=== PATIENT | male | born 1980 | race Two or more races ===

== ENCOUNTER 2017-11-13 18:25 | Inpatient (IN) | payer MEDICAID ==
[~2017-11-13] VITALS: Ht 170.2 cm; Wt 114.1 kg
--- NOTE | 2017-11-13 18:29 | NUR ---
AAOX3, BIBRA FROM HOME C/O EPIGASTRIC PAIN SINCE LAST NIGHT. PATIENT WAS SEEN AT [facility] THIS AM FOR SAME REASON, STATES THAT HIS LIPASE WAS HIGH. TOOK PRESCRIBED MEDICATION NORCO AND ZOFRAN X 1 HR AGO. PATIENT HAS HX OF PANCREATITIS. JACIEL CERTIFIED MARINE MECHANIC AT FOR EVAL. PLACED ON THE MONITOR. WILL CONTINUOUSLY MONITOR THE PATIENT.
[2017-11-13] MEDS ORDERED: ONDANSETRON HCL/PF 4 MG/2 ML VIAL ONE ×2 (18:34→20:50)
[2017-11-13] MEDS ORDERED: HYDROMORPHONE INJ 2 MG/ML DISP.SYRIN ONE ×3 (18:35→20:56)
--- NOTE | 2017-11-13 18:57 | NUR ---
REPORT GIVEN TO BLANCA AYALA FOR JEAN CLAUDE.
[2017-11-13] MEDS ORDERED: HYDROMORPHONE INJ 2 MG/ML DISP.SYRIN IV ONE (19:00)
[2017-11-13] MEDS ORDERED: IV NS 0.9% 1,000 ML BAG IV ONE ×2 (19:00→20:00)
[2017-11-13] MEDS ORDERED: ONDANSETRON HCL/PF 4 MG/2 ML VIAL IVP ONE (19:00)
[2017-11-13 19:26] LABS: BASOPHILS % (AUTO) 0.1 % (0.0-2.0); EOSINOPHILS % (AUTO) 2.1 % (0.0-6.0); HEMATOCRIT 38 % (39-51); HEMOGLOBIN 13.7 g/dL (13.5-17.5); LYMPHOCYTES # (AUTO) 2.2 /CMM (0.8-4.8); LYMPHOCYTES % (AUTO) 17.8 % (20.0-44.0); MEAN CORPUSCULAR HGB CONC 36 g/dl (31.0-36.0); MEAN CORPUSCULAR VOLUME 84 fL (80-96); MONOCYTES # (AUTO) 0.5 /CMM (0.1-1.30); MONOCYTES % (AUTO) 3.7 % (2.0-12.0); NEUTROPHILS # (AUTO) 9.5 /CMM (1.8-8.9); NEUTROPHILS % (AUTO) 76.3 % (43.0-81.0); PLATELET COUNT (AUTO) 413 /CMM (150-450); RDW COEFFICIENT OF VARIATION 13.8 (11.5-15.0); RED BLOOD CELL COUNT(AUTO) 4.58 MIL/uL (4.5-6.0); WHITE BLOOD COUNT (AUTO) 12.4 K/uL (4.3-11.0)
--- NOTE | 2017-11-13 19:54 | NUR ---
medicated pt as ordered
[2017-11-13] MEDS ORDERED: HYDROMORPHONE 1 MG/1 ML DISP.SYRIN IV ONE ×2 (20:00→21:00)
[2017-11-13 20:02] LABS: ALBUMIN 3.7 g/dL (3.4-5.0); BILIRUBIN,DIRECT 0.1 mg/dL (0.0-0.2); BILIRUBIN,TOTAL 0.7 mg/dL (0.2-1.0); CREATININE 0.9 mg/dL (0.6-1.3); POTASSIUM 3.8 mmol/L (3.5-5.1); TOTAL PROTEIN, SERUM 7.9 g/dL (6.4-8.2)
[2017-11-13 20:32] LABS: INR 0.9 (0.87-1.13)
[2017-11-13] MEDS ORDERED: MAG HYDROX/AL HYDROX/SIMETH 30 ML UDC ONE (20:46)
[2017-11-13] MEDS ORDERED: LIDOCAINE VISCOUS 2% UD 15 ML UDC ONE (20:46)
--- NOTE | 2017-11-13 20:51 | NUR ---
PT STATES HE IS FEELING NAUSEATED. PROCESS SPECIALIST NEGRASSE MADE AWARE. ZOFRAN 4MG IV ORDERED FOR NAUSEA.
--- NOTE | 2017-11-13 20:55 | NUR ---
CALLED , TRANSFERRED CALL TO NP. JACIEL
[2017-11-13] MEDS ORDERED: ONDANSETRON HCL/PF 4 MG/2 ML VIAL IV ONE (21:00)
[2017-11-13] MEDS ORDERED: LIDOCAINE VISCOUS 2% UD 15 ML UDC MM ONE (21:00)
[2017-11-13] MEDS ORDERED: MAG HYDROX/AL HYDROX/SIMETH 30 ML UDC PO ONE (21:00)
--- NOTE | 2017-11-13 21:00 | NUR ---
REPORT GIVEN TO CHRISTINA STEPHENS FOR JEAN CLAUDE.
[2017-11-13] MEDS ORDERED: GLIM4TAB2 PO (21:06)
[2017-11-13] MEDS ORDERED: LOSA50TA21 PO (21:06)
[2017-11-13] MEDS ORDERED: EZET10TA27 PO (21:06)
[2017-11-13] MEDS ORDERED: INSU100C10 SQ (21:06)
[2017-11-13] MEDS ORDERED: PIOG15TA8 PO (21:06)
[2017-11-13] MEDS ORDERED: INSU100I26 SQ (21:06)
[2017-11-13] MEDS ORDERED: METO-358 PO (21:06)
[2017-11-13] MEDS ORDERED: ASPI-605 PO (21:06)
[2017-11-13] MEDS ORDERED: PANT20TA2 PO (21:06)
--- NOTE | 2017-11-13 21:10 | NUR ---
PT TRANSPORTED BY ACLS PROTOCOL BY BLANCA SILVA AND EMT JEISON TO TELEMETRY UNIT.
--- NOTE | 2017-11-13 21:10 | NUR ---
PREMIUM CARD CANCELLATION CLERK NOTES PT ARRIVED ON TO THE UNIT AT 2109 VIA GURNEY ACCOMPANIED BY . PT COMPLAINS OF UNRELIEVED ABDOMINAL/EPIGASTRIC PAIN. PT STATES THAT HE HAS A HX OF PANCREATITIS. NO COMPLAINTS OF SOB AT THIS TIME. PT IS TELE MONITORED AT SINUS TACHYCARDIA. ALL PT BELONGINGS ACCOUNTED FOR AND DOCUMENTED. PT HAS A RIGHT HAND IV #20 INTACT AND PATENT. ORIENTED PT TO THE USE OF THE CALL LIGHT. SAFETY PRECAUTIONS IN PLACE. BED IN LOW LOCKED POSITION, X2 SIDE RAILS UP, CALL LIGHT WITHIN REACH. AWAITING ADMISSION ORDERS FROM DR VÁZQUEZ. WILL CONTINUE TO MONITOR.
--- NOTE | 2017-11-13 21:50 | NUR ---
RN NOTES PAGED DR VÁZQUEZ AT [phone]. DR VÁZQUEZ RETURNED CALL AT [phone]. WILL CARRY OUT ALL ORDERS PER MD REQUEST.
[2017-11-13 22:00] VITALS: BP 149/92
[2017-11-13] MEDS ORDERED: DEXTROSE 50%-WATER 50 ML DISP.SYRIN IV PRN (22:00)
[2017-11-13] MEDS ORDERED: *INSULIN REGULAR(HUMULIN R)HUM 100 UNIT/ML VIAL SQ PRN (22:00)
[2017-11-13] MEDS ORDERED: HYDROCODONE/APAP 5/325MG 1 EACH TABLET PO PRN (22:00)
[2017-11-13] MEDS ORDERED: HYDROMORPHONE 1 MG/1 ML DISP.SYRIN IV PRN (22:00)
[2017-11-13] MEDS: HYDROMORPHONE INJ 2 MG/ML DISP.SYRIN IV PRN (22:47)
--- NOTE | 2017-11-13 22:47 | NUR ---
RN NOTES PT REQUESTED PRN DILAUDID 1MG FOR PAIN. WILL ADMINISTER AND CONTINUE TO MONITOR.
[2017-11-13] MEDS: IV 1/2NS 1000 ML 1,000 ML IV PRN (22:51)
[2017-11-13] MEDS: BLOOD SUGAR DIAGNOSTIC 1 EACH STRIP VI SCH (22:56)
--- NOTE | 2017-11-13 22:58 | NUR ---
RN NOTES BLOOD SUGAR 271. HELD INSULIN, PT NPO EXCEPT FOR MEDS.
[2017-11-14] VITALS: BP 128/76
[2017-11-14] MEDS: ONDANSETRON HCL/PF 4 MG/2 ML VIAL IV PRN ×5 (02:27→21:31)
[2017-11-14] MEDS: HYDROMORPHONE INJ 2 MG/ML DISP.SYRIN IV PRN ×6 (02:29→21:35)
--- NOTE | 2017-11-14 02:30 | NUR ---
RN NOTES PT REQUESTED PRN DILAUDID 1MG AND ZOFRAN FOR ABDOMINAL PAIN AND NAUSEA. WILL CONTINUE TO MONITOR.
[2017-11-14 04:28] VITALS: BP 119/72
[2017-11-14 06:32] LABS: MEAN CORPUSCULAR VOLUME 83 fL (80-96); PLATELET COUNT (AUTO) 427 /CMM (150-450); RDW COEFFICIENT OF VARIATION 13.7 (11.5-15.0); WHITE BLOOD COUNT (AUTO) 10.2 K/uL (4.3-11.0)
--- NOTE | 2017-11-14 06:48 | NUR ---
RN CLOSING NOTES AWAKE AND RESTING IN BED. NO COMPLAINTS OF PAIN, SOB OR DISTRESS AT THIS TIME. PT IS TELE MONITORED AT SINUS TACHYCARDIA. PT HAS A RIGHT HAND IV #20 INTACT AND RUNNING 1/2NS @100ML/HR. SAFETY PRECAUTIONS IN PLACE. BED IN LOW LOCKED POSITION, X2 SIDE RAILS UP, CALL LIGHT WITHIN REACH. WILL ENDORSE TO DAY SHIFT NURSE FOR CONTINUITY OF CARE.
[2017-11-14 07:02] VITALS: BP 118/72
--- NOTE | 2017-11-14 07:07 | NUR ---
RN NOTES CALLED DR VÁZQUEZ TO CLARIFY ORDERS. PER DR VÁZQUEZ GIVE LANTUS THIS MORNING FOR BLOOD SUGAR 324. PT CONTINUES TO BE NPO.
[2017-11-14 07:12] LABS: POTASSIUM 3.7 mmol/L (3.5-5.1)
[2017-11-14 07:19] LABS: HDL CHOLESTEROL 20 mg/dL (40-60); LDL 68 mg/dL (0-99)
[2017-11-14 07:41] LABS: LIPASE 2009 U/L (73-393)
[2017-11-14 08:00] VITALS: BP 118/72
--- NOTE | 2017-11-14 08:00 | NUR ---
RN NOTES RECEIVED PATIENT IN THE ROOM A/O X4. PATIENT ON TELE MONITOR ST-120, V/S TAKEN STABLE, SCHEDULED MEDICATION ADMINISTERED. PATIENT C/O MEDIAL CHEST CHRONIC PAIN 11/09, WHEN MOVING IN THE BED. ENCOURAGED TO EXPRESS FEELINGS AND CONCERNS. PATIENT USING URINAL, PATIENT BED REST, NPO, BS -295 MG/DL COVERAGE GIVE. IV ON RIGHT HAND 0.45 NS AT 100 ML/HR. CALL LIGHT WITHIN TO REACH CONTINUED MONITORING.
[2017-11-14] MEDS: METOPROLOL SUCCINATE 50 MG TAB.SR.24H PO SCH (08:57)
[2017-11-14] MEDS: ASPIRIN EC 81 MG TABLET.DR PO SCH (08:57)
[2017-11-14] MEDS: PIOGLITAZONE HCL 15 MG TABLET PO SCH (08:58)
[2017-11-14] MEDS: GLIMEPIRIDE 4 MG TABLET PO SCH ×2 (08:58→16:47)
[2017-11-14] MEDS ORDERED: GLIMEPIRIDE 4 MG TABLET PO SCH (09:00)
[2017-11-14] MEDS ORDERED: ASPIRIN 81 MG TAB.CHEW PO SCH (09:00)
[2017-11-14] MEDS ORDERED: PANTOPRAZOLE 40 MG TABLET.DR PO SCH (09:00)
[2017-11-14] MEDS ORDERED: LOSARTAN POTASSIUM 50 MG TABLET PO SCH ×2 (09:00)
[2017-11-14] MEDS ORDERED: PIOGLITAZONE HCL 15 MG TABLET PO SCH (09:00)
--- NOTE | 2017-11-14 09:00 | NUR ---
RN NOTES ADMINISTERED DILAUDID 1 MG/ML IV PUSH FOR PAIN 02/08 , AND ZOFRAN 4 MG/ML FOR NAUSEA PER PATIENT REQUEST, BP-118/72, P-125. CONTINUED MONITORING.
[2017-11-14] MEDS: PANTOPRAZOLE 40 MG TABLET.DR PO SCH (09:04)
[2017-11-14] MEDS: BLOOD SUGAR DIAGNOSTIC 1 EACH STRIP VI SCH ×4 (09:04→21:36)
[2017-11-14 09:08] LABS: CREATININE 0.9 mg/dL (0.6-1.3); RED BLOOD CELL COUNT(AUTO) 4.42 MIL/uL (4.5-6.0)
[2017-11-14 09:09] LABS: HEMATOCRIT 37 % (39-51); HEMOGLOBIN 12.4 g/dL (13.5-17.5)
[2017-11-14 09:10] LABS: MEAN CORPUSCULAR HGB CONC 34 g/dl (31.0-36.0)
[2017-11-14 09:13] LABS: CALCIUM, SERUM 8.2 mg/dL (8.5-10.1)
[2017-11-14] MEDS: IV 1/2NS 1000 ML 1,000 ML IV PRN (09:15)
[2017-11-14 09:21] LABS: BASOPHILS % (AUTO) 0.4 % (0.0-2.0); EOSINOPHILS % (AUTO) 2.3 % (0.0-6.0); MONOCYTES % (AUTO) 4.7 % (2.0-12.0)
[2017-11-14] MEDS: INSULIN REGULAR, HUMAN 100 UNIT/ML 3 ML VIAL SQ PRN ×2 (09:23→18:08)
[2017-11-14] MEDS: METFORMIN 500 MG TABLET PO SCH ×2 (10:10→16:47)
[2017-11-14] MEDS: GEMFIBROZIL 600 MG TABLET PO SCH ×2 (10:12→21:30)
[2017-11-14] MEDS: INSULIN GLARGINE, 100 UNIT/ML CARTRIDGE SQ SCH ×2 (10:14→21:36)
[2017-11-14 11:28] LABS: TRIGLYCERIDES 5627 mg/dL (30-150)
[2017-11-14 12:53] LABS: LDL 71 mg/dL (0-99)
[2017-11-14 13:17] LABS: TRIGLYCERIDES 4957 mg/dL (30-150)
[2017-11-14 13:18] LABS: HDL CHOLESTEROL 26 mg/dL (40-60)
--- NOTE | 2017-11-14 14:28 | NUR ---
rn notes ADMINISTERED DILAUDID 1 MG/ML IV PUSH FOR UPPER CHEST PAIN 03/11, AND ALSO ADMINISTERED ZOFRAN 4 MG/ML IV PUSH FOR NAUSEA, PER PATIENT REQUEST, V/S TAKEN BP-131/89, P-109, CONTINUED MONITORING.
[2017-11-14 16:00] VITALS: BP 126/85
[2017-11-14] MEDS: IV NS 0.9% 1,000 ML IV PRN (17:54)
[2017-11-14] MEDS ORDERED: IV NS 0.9% 1,000 ML BAG IV SCH (18:00)
--- NOTE | 2017-11-14 18:13 | NUR ---
RN NOTES ADMINISTERED DILAUDID 1 MG/ML IV PUSH PER PATIENT REQUEST FOR PAIN 03/11, V/S TAKEN BP-126/85, P-105, BS-270 MG/DL COVERAGE GIVEN. CALL LIGHT WITHIN TO REACH. CONTINUED MONITORING.
--- NOTE | 2017-11-14 18:43 | NUR ---
RN NOTES PATIENT IN THE BED RESTING, MEDICATION WERE ADMINISTERED FOR PAIN EFFECTIN, BS-270 MG/DL COVERAGE GIVE, ALSO ADMINISTERED SCHEDULED MEDICATION. STARTED NS AT 100 ML/HR RIGHT HAND INTACT. CALL LIGHT WITHIN TO REACH. CONTINUED MONITORING. ENDORSED ONCOMING NURSE FOR JEAN CLAUDE.
--- NOTE | 2017-11-14 19:35 | NUR ---
RN OPENING NOTES RECEIVED REPORT FROM DAYSHIFT RN WES. FOUND Pt AWAKE, RESTING IN BED. NO S/S OF ACUTE DISTRESS OR SOB NOTED. Pt IS A/OX4, VERBAL, ABLE TO MAKE NEEDS KNOWN. NO C/O SEVERE PAIN AT THIS TIME. WILL CONTINUE TO MONITOR PAIN THROUGHOUT THE NIGHT AND WLL ADMINISTER PAIN MEDS WHEN DUE. IV ACCESS ON ON RHAND #20G, IVF NS @100ML/HR. SAFETY MEASURES IN PLACE. BED LOW, LOCKED, HOB ELEVATED, SIDE RAILS UP, CALL LIGHT AND BEDSIDE TABLE WITHIN REACH. WILL CONTINUE TO MONITOR Pt THROUGHOUT THE NIGHT FOR SAFETY.
[2017-11-14 20:00] VITALS: BP 111/68
[2017-11-14] MEDS ORDERED: INSULIN GLARGINE, 100 UNIT/ML CARTRIDGE SQ SCH ×2 (22:00)
[2017-11-14] MEDS ORDERED: METOPROLOL SUCCINATE 50 MG TAB.SR.24H PO SCH (22:00)
[2017-11-14] MEDS ORDERED: EZETIMIBE 10 MG TABLET PO SCH ×2 (22:00)
--- NOTE | 2017-11-14 22:00 | NUR ---
RN NOTES HS ACCUCHECK BG 257. ADMINISTERED LANTUS 20UN. FORGOT TO COMMENT ON THE ACCUCHECK MACHINE.
[2017-11-15] MEDS: ONDANSETRON HCL/PF 4 MG/2 ML VIAL IV PRN ×2 (02:29→06:27)
[2017-11-15] MEDS: HYDROMORPHONE INJ 2 MG/ML DISP.SYRIN IV PRN ×5 (02:33→22:33)
[2017-11-15] MEDS: IV NS 0.9% 1,000 ML IV PRN ×2 (04:30→15:33)
--- NOTE | 2017-11-15 06:30 | NUR ---
RN NOTES AC ACCUCHECK BG 254. ADMINISTERED 9UN OF INSULIN PER SLIDING SCALE.
[2017-11-15] MEDS: INSULIN REGULAR, HUMAN 100 UNIT/ML 3 ML VIAL SQ PRN ×2 (06:36→08:11)
--- NOTE | 2017-11-15 06:45 | NUR ---
RN CLOSING NOTES NO SIGNIFICANT CHANGES IN Pt's CONDITION DURING SHIFT. Pt REMAINS IN STABLE CONDITION AT THIS TIME. NO S/S OF ACUTE DISTRESS OR SOB NOTED DURING THE NIGHT. ALL NEEDS MET AND ATTENDED TO. SAFETY MEASURES IN PLACE. WILL ENDORSE TO DAYSHIFT RN FOR Pt's JEAN CLAUDE.
[2017-11-15 07:17] LABS: CALCIUM, SERUM 7.4 mg/dL (8.5-10.1); CREATININE 0.9 mg/dL (0.6-1.3); POTASSIUM 3.6 mmol/L (3.5-5.1)
[2017-11-15] MEDS: BLOOD SUGAR DIAGNOSTIC 1 EACH STRIP VI SCH ×4 (07:58→22:25)
[2017-11-15 08:00] VITALS: BP 110/66
--- NOTE | 2017-11-15 08:00 | NUR ---
RN NOTES RECEIVED PATIENT IN THE BED ON O2-2L NC. PATIENT HAS NO RESPIRATORY DISTRESS. ENCOURAGED TO EXPRESS FEELINGS AND CONCERNS. V/S STABLE, MEDICATION WERE ADMINISTERED FOR PAIN EFFECTIVE. SCHEDULED MEDICATION ADMINISTERED. ,BS-250MG/DL COVERAGE GIVEN. IN ON RIGHT HAND NS AT 100 ML/HR. PATIENT USING URINAL. CALL LIGHT WITHIN TO REACH, CONTINUED MONITORING.
[2017-11-15] MEDS: PANTOPRAZOLE 40 MG TABLET.DR PO SCH (08:02)
[2017-11-15] MEDS: ASPIRIN EC 81 MG TABLET.DR PO SCH (08:02)
[2017-11-15] MEDS: METFORMIN 500 MG TABLET PO SCH ×2 (08:04→17:50)
[2017-11-15] MEDS: GEMFIBROZIL 600 MG TABLET PO SCH ×2 (08:04→22:33)
[2017-11-15] MEDS: GLIMEPIRIDE 4 MG TABLET PO SCH (08:04)
[2017-11-15] MEDS: PIOGLITAZONE HCL 15 MG TABLET PO SCH (08:04)
[2017-11-15] MEDS: METOPROLOL SUCCINATE 50 MG TAB.SR.24H PO SCH (08:04)
[2017-11-15] MEDS: INSULIN GLARGINE, 100 UNIT/ML CARTRIDGE SQ SCH (08:10)
[2017-11-15] MEDS ORDERED: INSULIN GLARGINE, 100 UNIT/ML CARTRIDGE SQ ONE (08:30)
[2017-11-15] MEDS ORDERED: SITAGLIPTIN PHOSPHATE 50 MG TABLET PO SCH (09:00)
[2017-11-15] MEDS ORDERED: LINAGLIPTIN 5 MG TABLET PO SCH (09:00)
--- NOTE | 2017-11-15 10:27 | NUR ---
rn notes administered Dilaudid 1 mg/ml iv push per patient request for medial chest pain 01/09. v/s taken bp-115/66, p-95, call light within to reach, continued monitoring.
[2017-11-15] MEDS: INSULIN REGULAR, HUMAN 100 UNIT/ML 10 ML VIAL SQ SCH ×2 (12:04→17:46)
[2017-11-15 16:00] VITALS: BP 101/64
--- NOTE | 2017-11-15 17:51 | NUR ---
RN NOTES ADMINISTERED DILAUDID 1 MG/ML IV PUSH PER PATIENT REQUEST FOR MEDIAL CHEST PAIN 01/09, V/S TAKEN BP-101/64, P-94. BS-161 MG/DL, COVERAGE GIVEN, ADMINISTERED SCHEDULED MEDICATION. PATIENT EATING DINNER. CALL LIGHT WITHIN TO REACH. CONTINUED MONITORING.
[2017-11-15 17:53] LABS: CHOLESTEROL 368 mg/dL (<200)
--- NOTE | 2017-11-15 18:31 | NUR ---
RN NOTES PATIENT STABLE AT THIS TIME, MEDICATION WERE ADMINISTERED FOR PAIN EFFECTIVE, NO ACUTE RESPIRATORY DISTRESS. NEEDS ATTENDED AN ANTICIPATED. CALL LIGHT WITHIN TO REACH. ENDORSED ONCOMING NURSE FOR JEAN CLAUDE.
--- NOTE | 2017-11-15 19:35 | NUR ---
RN OPENING NOTES RECEIVED REPORT FROM [facility] BLANCA INIGUEZ. FOUND Pt AWAKE, RESTING IN BED. NO S/S OF ACUTE DISTRESS OR SOB NOTED. Pt IS A/OX4, VERBAL, ABLE TO MAKE NEEDS KNOWN. NO C/O SEVERE PAIN AT THIS TIME. WILL CONTINUE TO MONITOR PAIN THROUGHOUT THE NIGHT AND WILL ADMINISTER PAIN MEDS WHEN DUE. IV ACCESS ON ON RHAND #20G, IVF NS @100ML/HR. SAFETY MEASURES IN PLACE. BED LOW, LOCKED, HOB ELEVATED, SIDE RAILS UP, CALL LIGHT AND BEDSIDE TABLE WITHIN REACH. WILL CONTINUE TO MONITOR Pt THROUGHOUT THE NIGHT FOR SAFETY.
[2017-11-15 20:00] VITALS: BP_SYST 103; BP_SYST 118; BP_DIAS 61; BP_DIAS 66
--- NOTE | 2017-11-15 22:45 | NUR ---
RN NOTES HS ACCUCHECK 107. NO INSULIN COVERAGE NEEDED AT THIS TIME. WILL CONTINUE TO MONITOR BG.
[2017-11-16] MEDS: HYDROMORPHONE INJ 2 MG/ML DISP.SYRIN IV PRN ×3 (06:02→13:19)
[2017-11-16] MEDS: IV NS 0.9% 1,000 ML IV PRN (06:19)
[2017-11-16] MEDS: BLOOD SUGAR DIAGNOSTIC 1 EACH STRIP VI SCH ×2 (06:25→13:19)
--- NOTE | 2017-11-16 06:30 | NUR ---
RN NOTES AC ACCUCHECK BG 137. ADMINISTERED 2UN OF INSULIN PER SLIDING SCALE. HELD 0730 SCHEDULED INSULIN OF 12UN. ANOTHER SCHEDULED INSULIN AT 1200.
[2017-11-16] MEDS: INSULIN REGULAR, HUMAN 100 UNIT/ML 3 ML VIAL SQ PRN ×2 (06:33→13:25)
[2017-11-16] MEDS: INSULIN REGULAR, HUMAN 100 UNIT/ML 10 ML VIAL SQ SCH ×2 (06:43→12:00)
[2017-11-16 07:57] VITALS: BP 132/75
--- NOTE | 2017-11-16 08:00 | NUR ---
MS RN RECEIVED ON BED, AWAKE,ALERT,ORIENTED X4, NOT IN ANY FORM OF DISTRESS, RESPIRATIONS EVEN AND UNLABORED,NO SOB NOTED, LUNGS ARE CLEAR,ABDOMEN SOFT,POSITIVE BOWEL SOUNDS, DENIES PAIN AT THIS TIME, WILL MONITOR PATIENT.
[2017-11-16] MEDS ORDERED: FENO145T35 PO (08:27)
[2017-11-16] MEDS ORDERED: METF-440 PO (08:27)
[2017-11-16] MEDS ORDERED: HYDR-552 PO (08:28)
--- NOTE | 2017-11-16 09:00 | NUR ---
MS RIOS BREAKFAST SERVED,DUE MEDS GIVEN,TOLERATED WELL.
--- NOTE | 2017-11-16 09:30 | NUR ---
MS RN WAS SEEN BY DR. MARY Newby/ ORDERS MADE AND CARRIED OUT.
[2017-11-16] MEDS: GEMFIBROZIL 600 MG TABLET PO SCH (09:35)
[2017-11-16 09:36] VITALS: BP 132/75
[2017-11-16] MEDS: ASPIRIN EC 81 MG TABLET.DR PO SCH (09:36)
[2017-11-16] MEDS: PANTOPRAZOLE 40 MG TABLET.DR PO SCH (09:36)
[2017-11-16] MEDS: METFORMIN 500 MG TABLET PO SCH (09:36)
[2017-11-16] MEDS: METOPROLOL SUCCINATE 50 MG TAB.SR.24H PO SCH (09:36)
--- NOTE | 2017-11-16 10:00 | NUR ---
ms rn was seen by dr. sandra hughes/ [place] to go home today.
--- NOTE | 2017-11-16 15:20 | NUR ---
ms program director/morning show host instructions given and understood, went home w/ prescription,all needs attended.
[2017-11-16] MEDS ORDERED: INSULIN GLARGINE, 100 UNIT/ML CARTRIDGE SQ SCH (22:00)
== END 2017-11-16 15:15 | disposition home or self-care (01) | DRG 282 ==
LOC: ER 18:31 → TELE 20:55 → MED 11-14 08:22
PROVIDERS: ADMIT Internal Medicine; ATTEND Internal Medicine
DX: K85.90 Acute pancreatitis without necrosis or infection, unspecified (principal); I10 Essential (primary) hypertension; E78.1 Pure hyperglyceridemia; K86.1 Other chronic pancreatitis; E11.9 Type 2 diabetes mellitus without complications; E78.5 Hyperlipidemia, unspecified; Z83.3 Family history of diabetes mellitus; Z82.49 Family history of ischemic heart disease and other diseases of the circulatory system; Z79.82 Long term (current) use of aspirin; Z79.84 Long term (current) use of oral hypoglycemic drugs; Z79.899 Other long term (current) drug therapy
CPT/HCPCS: 36415; 71045-TC; 80048-TC; 80061-TC; 80076-TC; 82962-TC; 83690-TC; 84478-TC; 84484-TC; 85025-TC; 85730-TC; 87081-TC; A4606; J1170; J1815; J2405; J3490; J7030; Z7610

== ENCOUNTER 2017-12-26 13:17 | Inpatient (IN) | payer MEDICAID ==
[~2017-12-26] VITALS: Ht 165.1 cm; Wt 117.9 kg
[2017-12-26] VITALS (7 sets, daily range): BP systolic 134–153; BP diastolic 87–103
[~2017-12-26 13:17] MED LIST: ASPI-605 PO; FENO145T35 PO; HYDR-552 PO; INSU100I26 SQ; METF-440 PO; METO-358 PO; PANT20TA2 PO; PIOG15TA8 PO
--- NOTE | 2017-12-26 13:30 | NUR ---
PT CAME IN WITH C/O CHEST AND EPIGASTRIC PAIN STARTED 2 HRS AGO. SEEN BY MD FOR EVAL. NOTED DIAPHORETIC. TACHY. SAFETY AND COMFORT MEASURES PROVIDED. WILL MONITOR.
[2017-12-26] MEDS ORDERED: HYDROMORPHONE INJ 0.5 MG/0.5 ML SYRINGE ONE ×6 (13:57→18:15)
[2017-12-26] MEDS ORDERED: ONDANSETRON HCL/PF 4 MG/2 ML VIAL ONE (13:57)
[2017-12-26] MEDS ORDERED: IV NS 0.9% 1,000 ML BAG IV ONE ×3 (14:00→21:30)
[2017-12-26] MEDS ORDERED: ONDANSETRON HCL/PF 4 MG/2 ML VIAL IVP ONE (14:00)
[2017-12-26] MEDS ORDERED: HYDROMORPHONE INJ 2 MG/ML DISP.SYRIN IV ONE (14:00)
--- NOTE | 2017-12-26 14:11 | NUR ---
IV ACCESS STARTED. BLOOD DRAWN FOR LABS. MEDICATED ORDERED.
--- NOTE | 2017-12-26 14:20 | NUR ---
NOTED PT DESATED TO 60%, PLACED ON NON-REBREATHER. SATURATION CAME BACK UP TO 90'S. PLACED ON NC. WILL CLOSELY MONITOR. TRANSFORMER ASSEMBLY SUPERVISOR AWARE.
[2017-12-26] MEDS ORDERED: HYDROMORPHONE 1 MG/1 ML DISP.SYRIN IV ONE ×4 (14:30→19:30)
--- NOTE | 2017-12-26 15:15 | NUR ---
REPatient is resting comfortably in bed with eyes closed. Easily aroused. VSS
[2017-12-26] MEDS ORDERED: FENTANYL PF 100MCG/2ML AMPUL IV ONE (15:30)
[2017-12-26] MEDS ORDERED: FENTANYL PF 100MCG/2ML AMPUL ONE (15:32)
[2017-12-26] MEDS ORDERED: NALOXONE HCL 0.4 MG/ML AMPUL ONE (15:33)
[2017-12-26 15:39] LABS: CALCIUM, SERUM 9.8 mg/dL (8.5-10.1)
[2017-12-26 15:42] LABS: POTASSIUM 3.6 mmol/L (3.5-5.1)
[2017-12-26 15:46] LABS: ALBUMIN 3.9 g/dL (3.4-5.0); BILIRUBIN,TOTAL 0.5 mg/dL (0.2-1.0)
[2017-12-26 15:47] LABS: TOTAL PROTEIN, SERUM 8.1 g/dL (6.4-8.2)
[2017-12-26] MEDS ORDERED: IOHEXOL-300 100 ML VIAL IV ONE (16:00)
[2017-12-26 16:04] LABS: BASOPHILS % (AUTO) 0.5 % (0.0-2.0); EOSINOPHILS % (AUTO) 4.8 % (0.0-6.0); HEMATOCRIT 32 % (39-51); HEMOGLOBIN 11.4 g/dL (13.5-17.5); LYMPHOCYTES # (AUTO) 3.1 /CMM (0.8-4.8); LYMPHOCYTES % (AUTO) 34.8 % (20.0-44.0); MEAN CORPUSCULAR HGB CONC 36 g/dl (31.0-36.0); MEAN CORPUSCULAR VOLUME 83 fL (80-96); MONOCYTES # (AUTO) 0.3 /CMM (0.1-1.30); NEUTROPHILS % (AUTO) 56.9 % (43.0-81.0); PLATELET COUNT (AUTO) 294 /CMM (150-450); RDW COEFFICIENT OF VARIATION 14.3 (11.5-15.0); RED BLOOD CELL COUNT(AUTO) 3.86 MIL/uL (4.5-6.0); WHITE BLOOD COUNT (AUTO) 8.9 K/uL (4.3-11.0)
--- NOTE | 2017-12-26 16:05 | NUR ---
PT TAKEN FOR CT.
[2017-12-26 16:23] LABS: EOSINOPHILS % (MANUAL) 2 % (0-4); LYMPHOCYTES % (MANUAL) 38 % (16-48); MONOCYTES % (MANUAL) 9 % (0-11.0); NEUTROPHILS % (MANUAL) 51 (42-76)
[2017-12-26] MEDS ORDERED: HYDROMORPHONE INJ 0.5 MG/0.5 ML SYRINGE IV ONE (17:00)
--- NOTE | 2017-12-26 17:21 | NUR ---
CALLED NURSE SUP FOR ICU BED
--- NOTE | 2017-12-26 17:21 | NUR ---
PITER BEAVER MEAT LOINER [phone] FAX [phone].
[2017-12-26] MEDS ORDERED: INSU100I14 SQ (17:39)
[2017-12-26] MEDS ORDERED: OMEP20TA5 PO (17:39)
[2017-12-26] MEDS ORDERED: FENO145T35 PO (17:39)
[2017-12-26] MEDS ORDERED: GLIM4TAB2 PO (17:39)
[2017-12-26] MEDS ORDERED: LOSA50TA21 PO (17:39)
[2017-12-26] MEDS ORDERED: METF-442 PO (17:39)
[2017-12-26] MEDS ORDERED: EZET10TA14 PO (17:39)
--- NOTE | 2017-12-26 18:35 | NUR ---
RECEIVED AUTH NUMBER [id number] - PAGED DR. VÁZQUEZ
--- NOTE | 2017-12-26 18:40 | NUR ---
DR VÁZQUEZ CALLED BACK, JACIEL, SOFTWARE CLIENT ARCHITECT IS TALKING WITH HIM ON THE PHONE.
--- NOTE | 2017-12-26 18:44 | NUR ---
CALLED NURSE SUP FOR [facility] BED
--- NOTE | 2017-12-26 19:13 | NUR ---
REPORT GIVEN TO DIANNA RIOS FOR JEAN CLAUDE.
[2017-12-26] MEDS ORDERED: HYDROMORPHONE INJ 2 MG/ML DISP.SYRIN ONE (19:28)
[2017-12-26 19:32] LABS: LDL 94 mg/dL (0-99)
[2017-12-26 20:26] LABS: TRIGLYCERIDES 3247 mg/dL (30-150)
[2017-12-26 20:27] LABS: CHOLESTEROL 295 mg/dL (<200); HDL CHOLESTEROL 118 mg/dL (40-60)
--- NOTE | 2017-12-26 20:48 | NUR ---
REPORT GIVEN TO NITZA SCHUSTER
[2017-12-26] MEDS ORDERED: ZOLPIDEM TARTRATE 5 MG TABLET PO PRN (21:30)
[2017-12-26] MEDS ORDERED: ACETAMINOPHEN 650 MG/20.3 ML UDC NG PRN (21:30)
[2017-12-26] MEDS ORDERED: HYDROCODONE/APAP 5/325MG 1 EACH TABLET PO PRN (21:30)
[2017-12-26] MEDS ORDERED: IV 1/2NS 1000 ML 1,000 ML IV SCH (21:30)
[2017-12-26] MEDS: PANTOPRAZOLE 40 MG VIAL IV SCH (21:42)
[2017-12-26] MEDS ORDERED: INSULIN REGULAR, HUMAN 100 UNIT/ML 3 ML VIAL ONE (21:45)
[2017-12-26] MEDS: HYDROMORPHONE INJ 0.5 MG/0.5 ML SYRINGE IV PRN (22:00)
[2017-12-26] MEDS: ONDANSETRON HCL/PF 4 MG/2 ML VIAL IV PRN (22:02)
[2017-12-26] MEDS: INSULIN REGULAR, HUMAN 100 UNIT in IV NS 0.9% 99 ML IV PRN ×2 (22:15)
[2017-12-26] MEDS: BLOOD SUGAR DIAGNOSTIC 1 EACH STRIP IN SCH ×2 (22:20→22:59)
--- NOTE | 2017-12-26 22:21 | NUR ---
received pt from ER, s/p acute pancreatitis a/o x4, ST, on insulin drip at 4units, on 2 L 02, sat well, lungs clear, no edema, NPO, urinates in urinal, v/s stable, c/o epigastric pain, Dilaudid 1mg ivp given, c/o n/v Zofran 4mg ivp given, at the bedside.
[2017-12-26] MEDS ORDERED: PIPERACILLIN /TAZOBACTAM 2.25 G VIAL IV ONE (23:41)
[2017-12-26] MEDS: PIPERACILLIN /TAZOBACTAM 4.5 G in IV D5W 50 ML IV SCH (23:42)
[2017-12-27] VITALS (45 sets, daily range): BP systolic 71–144; BP diastolic 45–95
[2017-12-27] MEDS: INSULIN REGULAR, HUMAN 100 UNIT in IV NS 0.9% 99 ML IV PRN ×8 (00:03→20:06)
--- NOTE | 2017-12-27 00:36 | NUR ---
pt is resting in the bed, on insulin drip at 8units, Algorithm #2 is used, last BS 337, v/s stable, c/o constant pain, Dilaudid 1mg ivp beeing given q3hrs, good urine output, pt turns and repositions by himself.
[2017-12-27] MEDS: HYDROMORPHONE INJ 0.5 MG/0.5 ML SYRINGE IV PRN ×6 (01:11→21:16)
[2017-12-27] MEDS: BLOOD SUGAR DIAGNOSTIC 1 EACH STRIP IN SCH ×24 (01:11→22:59)
[2017-12-27] MEDS: ONDANSETRON HCL/PF 4 MG/2 ML VIAL IV PRN ×4 (04:12→19:25)
--- NOTE | 2017-12-27 04:27 | NUR ---
pt is resting in the bed, alert, follows commands, ST, on insulin drip at 26units Algorithm#4, last BS 395, good urine output, v/s stable, Dilaudid 1mg ivp given q3hrs.
[2017-12-27] MEDS ORDERED: PIPERACILLIN /TAZOBACTAM 2.25 G VIAL IV ONE ×2 (04:51→04:52)
[2017-12-27 05:10] LABS: BASOPHILS % (AUTO) 0.3 % (0.0-2.0); EOSINOPHILS % (AUTO) 0.5 % (0.0-6.0); HEMATOCRIT 38 % (39-51); HEMOGLOBIN 13.1 g/dL (13.5-17.5); LYMPHOCYTES # (AUTO) 1.3 /CMM (0.8-4.8); LYMPHOCYTES % (AUTO) 23.7 % (20.0-44.0); MEAN CORPUSCULAR HGB CONC 35 g/dl (31.0-36.0); MEAN CORPUSCULAR VOLUME 84 fL (80-96); MONOCYTES # (AUTO) 0.1 /CMM (0.1-1.30); MONOCYTES % (AUTO) 2.3 % (2.0-12.0); NEUTROPHILS % (AUTO) 73.2 % (43.0-81.0); PLATELET COUNT (AUTO) 399 /CMM (150-450); RDW COEFFICIENT OF VARIATION 14.8 (11.5-15.0); RED BLOOD CELL COUNT(AUTO) 4.48 MIL/uL (4.5-6.0); WHITE BLOOD COUNT (AUTO) 5.5 K/uL (4.3-11.0)
[2017-12-27] MEDS: PIPERACILLIN /TAZOBACTAM 4.5 G in IV D5W 50 ML IV SCH (05:10)
[2017-12-27 05:29] LABS: ALBUMIN 2.6 g/dL (3.4-5.0); BILIRUBIN,TOTAL 0.9 mg/dL (0.2-1.0); POTASSIUM 3.8 mmol/L (3.5-5.1); TOTAL PROTEIN, SERUM 6.7 g/dL (6.4-8.2)
--- NOTE | 2017-12-27 05:30 | NUR ---
4 units regular insulin SQ given in addition to insulin drip per protocol. BS 395
[2017-12-27 05:31] LABS: LYMPHOCYTES % (MANUAL) 19 % (16-48); MONOCYTES % (MANUAL) 2 % (0-11.0); NEUTROPHILS % (MANUAL) 79 (42-76)
[2017-12-27 05:58] LABS: CREATININE 0.7 mg/dL (0.6-1.3)
[2017-12-27 06:00] LABS: CALCIUM, SERUM 5.8 mg/dL (8.5-10.1)
[2017-12-27] MEDS ORDERED: INSULIN REGULAR, HUMAN 100 UNIT/ML 10 ML VIAL IV ONE (06:00)
--- NOTE | 2017-12-27 06:10 | NUR ---
Dr Marino called with last BS results, 30 units Lantus SQ order received and carried out.
[2017-12-27] MEDS ORDERED: INSULIN GLARGINE, 100 UNIT/ML CARTRIDGE SQ ONE ×2 (06:30→09:00)
--- NOTE | 2017-12-27 06:30 | NUR ---
Dr Marino notified for Ca 5.8 Order for pharmacy to dose Ca gluconate received.
[2017-12-27] MEDS ORDERED: PIPERACILLIN /TAZOBACTAM 4.5 G in IV NS 0.9% 50 ML IV SCH (08:21)
[2017-12-27] MEDS: ASPIRIN EC 81 MG TABLET.DR PO SCH (08:25)
[2017-12-27] MEDS: EZETIMIBE 10 MG TABLET PO SCH (08:25)
[2017-12-27] MEDS ORDERED: Calcium Gluconate 1GM/10ML 9.3 MEQ in IV NS 0.9% 250 ML IV ONE (08:30)
[2017-12-27] MEDS: Calcium Gluconate 1GM/10ML 9.3 MEQ in IV NS 0.9% 250 ML IV SCH ×2 (08:59→16:21)
[2017-12-27] MEDS: GEMFIBROZIL 600 MG TABLET PO SCH ×2 (08:59→20:59)
[2017-12-27] MEDS ORDERED: NIACIN EXT TAB (500MG) 500 MG TABLET.SA PO ONE (09:00)
[2017-12-27] MEDS ORDERED: FENOFIBRATE NANOCRYS (145 MG) 145 MG TABLET PO SCH (09:00)
[2017-12-27] MEDS ORDERED: Calcium Gluconate 1GM/10ML 9.3 MEQ in IV D5W 250 ML IV SCH (09:00)
[2017-12-27] MEDS ORDERED: LOSARTAN POTASSIUM 50 MG TABLET PO SCH (09:00)
[2017-12-27] MEDS ORDERED: METOPROLOL TARTRATE 50 MG TABLET PO SCH (09:00)
--- NOTE | 2017-12-27 09:53 | NUR ---
RISK SPECIALIST NOTE 0720: Received patient awake, A/Ox3. No respiratory distress noted at this time. With c/o severe pain in abdomen, Dilaudid given as ordered, will continue to monitor. PIVs intact. On insulin drip @ 26u/hr and 1/2 NS @ 100. Remained NPO. Able to use urinals. Noted with clear marci colored urine. 0800: Temp 100.4, Tylenol given as ordered. 0840: S/E by Dr. Marino, with order to get Wood Tank Erector, Nurse sup aware, said none at this time. MD argueta, MD called nephro. Changed Dilaudid to 1mg q2 from q3. Still in insulin drip, BG trending down. Still ST 130's. 1/2NS changed to 150mL/hr from 100mL/hr. Still with severe abdominal pain. 0950: Still with abdominal pain, followed up [facility] Called pharmacy x since 914.
[2017-12-27] MEDS: IV 1/2NS 1000 ML 1,000 ML IV PRN ×2 (10:05→19:37)
[2017-12-27] MEDS: PIPERACILLIN /TAZOBACTAM 4.5 G in IV NS 0.9% 50 ML IV SCH ×3 (12:06→23:19)
[2017-12-27] MEDS: IV NS 0.9% 1,000 ML IV PRN (17:15)
--- NOTE | 2017-12-27 17:40 | NUR ---
RESIDENT CARE MANAGER NOTE SBP 70's, Informed Dr. Marino, with order for NS 1L bolus, and DCd Metoprolol. Followed up with PICC line, CN spoke with nurse sup. Visited by family, wanting to ask for gastric bypass if applicable for the patient, told them I will endorse for nurse tomorrow.
--- NOTE | 2017-12-27 18:53 | NUR ---
PRODUCTION WELDER NOTE Informed Dr. Marino patient still SBP 70's after Bolus NS 1L, with new order of Levophed. Followed up with the pharmacy. Also followed up for PICC line insertion, nurse tj said somebody will come to do it. Will endorse to next shift.
[2017-12-27] MEDS: NOREPINEPHRINE 16 MG in IV D5W 500 ML IV PRN (19:16)
--- NOTE | 2017-12-27 19:30 | NUR ---
ROUTE DELIVERY SUPERVISOR INITIAL NOTES RECEIVED PATIENT AWAKE A/OX4, ABLE TO MAKE NEEDS KNOWN, DROWSY. C/O 03/11 MID CHEST PAIN NON-RADIATING. PERSPIRING. NO RESPIRATORY DISTRESS NOTED ON 2LPMO2 VIA NC. ON TELE MONITOR SR. WITH INSULIN DRIP AT 12UNITS/HR, LEVO, AND IVF. PENDING PICC LINE PLACEMENT. HOB HIGH FOWLERS. SIDE RAILS UP AND LOCKED. BED KEPT AT LOWEST POSITION. CALL LIGHT KEPT WITHIN EASY REACH. WILL CONTINUE TO MONITOR.
[2017-12-27] MEDS: PANTOPRAZOLE 40 MG VIAL IV SCH (20:59)
--- NOTE | 2017-12-27 21:20 | NUR ---
VISITOR SERVICES REPRESENTATIVE NOTE PICC LINE NURSE AT BEDSIDE
--- NOTE | 2017-12-27 22:00 | NUR ---
S/P PICC LINE PLACEMENT. PER PICC LINE NURSE OK TO USE PICC LINE RIGHT AWAY.
[2017-12-28] VITALS (79 sets, daily range): BP systolic 85–138; BP diastolic 23–76
--- NOTE | 2017-12-28 00:42 | NUR ---
IRONING MACHINE OPERATOR NOTE NON-ADMIN PO MEDICATION, PATIENT TO LETHARGIC TO SWALLOW. WILL CONTINUE TO MONITOR. Addendum: 12/28/17 at 0109 by VIGNESH JUNIOR RN DELETE NOTE, WRONG PATIENT
[2017-12-28] MEDS: BLOOD SUGAR DIAGNOSTIC 1 EACH STRIP IN SCH ×24 (00:59→23:05)
[2017-12-28] MEDS: HYDROMORPHONE INJ 0.5 MG/0.5 ML SYRINGE IV PRN ×9 (01:04→21:44)
[2017-12-28] MEDS: ONDANSETRON HCL/PF 4 MG/2 ML VIAL IV PRN ×3 (01:04→19:02)
[2017-12-28] MEDS: IV 1/2NS 1000 ML 1,000 ML IV PRN ×3 (03:05→23:05)
--- NOTE | 2017-12-28 04:30 | NUR ---
LOG MANAGER NOTE BED BATH GIVEN, LINEN CHANGED.
[2017-12-28 04:49] LABS: HEMATOCRIT 37 % (39-51); MEAN CORPUSCULAR HGB CONC 35 g/dl (31.0-36.0); MEAN CORPUSCULAR VOLUME 83 fL (80-96); PLATELET COUNT (AUTO) 407 /CMM (150-450); RDW COEFFICIENT OF VARIATION 15.1 (11.5-15.0); RED BLOOD CELL COUNT(AUTO) 4.45 MIL/uL (4.5-6.0); WHITE BLOOD COUNT (AUTO) 11.2 K/uL (4.3-11.0)
--- NOTE | 2017-12-28 05:00 | NUR ---
ROLL PLUGGER NOTE NOTED PATIENT WITH LOW URINE OUTPUT, PATIENT DENIES BLADDER DISCOMFORT. NO BLADDER DISTENTION NOTED, BLADDER SCAN DONE WITH MINIMAL 60 ML URINE NOTED. PATIENT STATED HE WILL TRY AND PEE AT THIS TIME. WILL CONTINUE TO MONITOR.
[2017-12-28 05:14] LABS: ALBUMIN 2.1 g/dL (3.4-5.0); BILIRUBIN,TOTAL 0.8 mg/dL (0.2-1.0); CALCIUM, SERUM 6.4 mg/dL (8.5-10.1); CREATININE 2.1 mg/dL (0.6-1.3); POTASSIUM 3.7 mmol/L (3.5-5.1); TOTAL PROTEIN, SERUM 6.3 g/dL (6.4-8.2)
[2017-12-28 05:40] LABS: BAND % (MANUAL) 8 % (0.0-5.0); LYMPHOCYTES % (MANUAL) 38 % (16-48); MONOCYTES % (MANUAL) 2 % (0-11.0); NEUTROPHILS % (MANUAL) 49 (42-76)
[2017-12-28 05:41] LABS: EOSINOPHILS % (MANUAL) 3 % (0-4)
[2017-12-28] MEDS: PIPERACILLIN /TAZOBACTAM 4.5 G in IV NS 0.9% 50 ML IV SCH ×4 (05:52→23:05)
[2017-12-28] MEDS: INSULIN REGULAR, HUMAN 100 UNIT in IV NS 0.9% 99 ML IV PRN ×4 (06:22→17:35)
[2017-12-28] MEDS ORDERED: NOREPINEPHRINE 4 MG/4 ML AMPUL IV ONE (06:29)
[2017-12-28] MEDS: NOREPINEPHRINE 16 MG in IV D5W 500 ML IV PRN (06:34)
--- NOTE | 2017-12-28 07:10 | NUR ---
CHRISTMAS TREE FARM WORKER NOTE DILAUDID 0.5MGX2 ACCIDENTALLY THROWN IN THE SHARPS CONTAINER. CHARGE NURSE AND ANOTHER RN VISUALLY SAW MEDICATION IN SHARPS CONTAINER UNUSED. PHARMACY ADEOLA MADE AWARE.
--- NOTE | 2017-12-28 07:30 | NUR ---
FOOD BEVERAGE SUPERVISOR RECEIVED PATIENT ASLEEP ON 2L/C SATURATING 95% ABLE TO WAKE UP EASILY ON INSULIN DRIP AND LEVOPHED , TITRATING ACCORDINGLY MAINTAINED ON NPO ICE CHIPS OFFERED ACCUCHECK TAKEN EVERY HOUR ABLE TO USE HIS URINAL
--- NOTE | 2017-12-28 07:46 | NUR ---
PIPE CONNECTOR CLOSING NOTE NO SIGNIFICANT CHANGES OVERNIGHT. PAIN MONITORED AND MANAGED NEEDED. NO RESPIRATORY DISTRESS NOTED. PER PATIENT HE'S FEELING A LITTLE BETTER TODAY. ALL TITRATABLE MEDICATIONS TITRATED PER PROTOCOL. ALL NEEDS ANTICIPATED AND MET. HOB ELEVATED. SIDE RAILS UP AND LOCKED. BED KEPT AT LOWEST POSITION. CALL LIGHT KEPT WITHIN EASY REACH. CONTINUITY OF CARE ENDORSED TO AM NURSE.
[2017-12-28] MEDS: GEMFIBROZIL 600 MG TABLET PO SCH ×2 (08:05→21:44)
[2017-12-28] MEDS: ASPIRIN EC 81 MG TABLET.DR PO SCH (08:05)
[2017-12-28] MEDS: EZETIMIBE 10 MG TABLET PO SCH (08:11)
[2017-12-28] MEDS ORDERED: INSULIN GLARGINE, 100 UNIT/ML CARTRIDGE SQ ONE (09:30)
[2017-12-28] MEDS ORDERED: METOCLOPRAMIDE HCL 10 MG/2 ML VIAL IV ONE (09:30)
[2017-12-28] MEDS: IV NS 0.9% 1,000 ML IV PRN (09:47)
--- NOTE | 2017-12-28 18:41 | NUR ---
CHLORINATION OPERATOR LANTUS INSULIN GIVEN EARLIER MONITORED SUGAR CLOSELY
[2017-12-28] MEDS: PANTOPRAZOLE 40 MG VIAL IV SCH (21:44)
[2017-12-28] MEDS: NIACIN EXT TAB (500MG) 500 MG TABLET.SA PO SCH (21:44)
--- NOTE | 2017-12-28 21:44 | NUR ---
REVENUE SPECIALIST PT C/O RLQ ABD PAIN 03/11; MEDICATED WITH DILAUDID ORDERED.
--- NOTE | 2017-12-28 22:00 | NUR ---
SURG NURSE BLOOD GLUCOSE 86 INSULIN DRIP TITRATED OFF PER DR VÁZQUEZ BEGIN SLIDING SCALE. PT EDUCATED ON PLAN OF CARE; VERBALIZES UNDERSTANDING. CONTINUE TO MONITOR.
[2017-12-28] MEDS ORDERED: DEXTROSE 50%-WATER 50 ML DISP.SYRIN IV PRN (22:30)
[2017-12-29] VITALS (25 sets, daily range): BP systolic 90–118; BP diastolic 51–78
[2017-12-29] MEDS: HYDROMORPHONE INJ 0.5 MG/0.5 ML SYRINGE IV PRN ×8 (01:12→20:35)
--- NOTE | 2017-12-29 01:12 | NUR ---
YARD SPECIALIST PT C/O RLQ ABD PAIN 03/11; MEDICATED WITH DILAUDID ORDERED.
[2017-12-29 04:34] LABS: ALBUMIN 1.8 g/dL (3.4-5.0); BILIRUBIN,TOTAL 0.9 mg/dL (0.2-1.0); CREATININE 2.5 mg/dL (0.6-1.3); TOTAL PROTEIN, SERUM 5.6 g/dL (6.4-8.2)
[2017-12-29 05:04] LABS: HEMATOCRIT 27 % (39-51); HEMOGLOBIN 9.9 g/dL (13.5-17.5); MEAN CORPUSCULAR HGB CONC 36 g/dl (31.0-36.0); MEAN CORPUSCULAR VOLUME 83 fL (80-96); PLATELET COUNT (AUTO) 293 /CMM (150-450); RDW COEFFICIENT OF VARIATION 14.6 (11.5-15.0); RED BLOOD CELL COUNT(AUTO) 3.31 MIL/uL (4.5-6.0); WHITE BLOOD COUNT (AUTO) 6.4 K/uL (4.3-11.0)
[2017-12-29 05:56] LABS: EOSINOPHILS % (MANUAL) 4 % (0-4); LYMPHOCYTES % (MANUAL) 30 % (16-48); MONOCYTES % (MANUAL) 6 % (0-11.0); NEUTROPHILS % (MANUAL) 60 (42-76)
[2017-12-29] MEDS: PIPERACILLIN /TAZOBACTAM 4.5 G in IV NS 0.9% 50 ML IV SCH ×4 (06:00→23:40)
[2017-12-29] MEDS: BLOOD SUGAR DIAGNOSTIC 1 EACH STRIP IN SCH ×4 (06:00→23:39)
--- NOTE | 2017-12-29 07:05 | NUR ---
SEED PACKER- INITIAL NOTE RECEIVED PT RESTING IN BED. PT A/O X4. ON 2L NC, RESPIRATIONS EVEN AND UNLABORED, NO SOB OR DISTRESS PRESENT. BEDSIDE MONITOR REVEALS SINUS TACHYCARDIA. ANGELY PICC LINE RUNNING 1/2NS @ 100 ML/HR. PT REMAINS NPO EXCEPT MEDS. APPEARS COMFORTABLE AT THIS TIME. WILL CONTINUE TO MONITOR.
[2017-12-29] MEDS: EZETIMIBE 10 MG TABLET PO SCH (08:16)
[2017-12-29] MEDS: ASPIRIN EC 81 MG TABLET.DR PO SCH (08:16)
[2017-12-29] MEDS: GEMFIBROZIL 600 MG TABLET PO SCH ×2 (08:17→20:34)
[2017-12-29] MEDS ORDERED: POTASSIUM CL. PREMIX PERIPHER. 50 ML IV SCH (09:00)
[2017-12-29] MEDS ORDERED: POTASSIUM CHLORIDE 20 MEQ TAB.PRT.SR PO ONE (09:30)
[2017-12-29] MEDS: IV NS 0.9% 1,000 ML IV PRN (09:42)
[2017-12-29] MEDS ORDERED: Calcium Gluconate 1GM/10ML 9.3 MEQ in IV NS 0.9% 250 ML IV ONE (10:00)
[2017-12-29] MEDS: ALBUMIN 25% 25 GM in PREMIX 1 EA IV SCH ×3 (10:34→21:41)
[2017-12-29] MEDS: INSULIN REGULAR, HUMAN 100 UNIT/ML 3 ML VIAL SQ PRN ×3 (12:12→23:41)
[2017-12-29 13:45] LABS: CREATININE, URINE 216.4 MG/DL (30.0-125.0)
--- NOTE | 2017-12-29 14:25 | NUR ---
CATALOGUE ILLUSTRATOR- REPORT GIVEN TO DIEGO CHARGE NURSE IN SAR[facility]. 1440- PT TRANSFERRED TO ROOM 110. ALL BELONGINGS SENT WITH PT.
--- NOTE | 2017-12-29 15:00 | NUR ---
SURGICAL ASSISTANTFOOTWEAR FACTORY WORKER NOTE GOT PATIENT FROM ICU,AXOX4 ABLE TO MAKE NEEDS OWN.O2 2L VIA NASAL CANULA.ANGELY PICCLINE WITH NS 100ML/HR.IV ON RAC#20.CALL LIGHT IN REACH.BED LOCKED AND IN LOW POSITION .ALL NEEDS MET.CONTINUE TO MONITOR.
[2017-12-29] MEDS: ONDANSETRON HCL/PF 4 MG/2 ML VIAL IV PRN (17:19)
--- NOTE | 2017-12-29 19:00 | NUR ---
SUPERVISOR PHOTOSTAT SHIFT END NOTE PATIENT IN BED,AXOX4 ABLE TO MAKE NEEDS OWN.O2 2L VIA NASAL CANULA.ANGELY PICCLINE WITH NS 100ML/HR.IV ON RAC#20.CALL LIGHT IN REACH.BED LOCKED AND IN LOW POSITION .ALL NEEDS MET.WILL ENDORSE TO PM NURSE FOR JEAN CLAUDE.FAMILY AT BEDSIDE.
[2017-12-29] MEDS: PANTOPRAZOLE 40 MG VIAL IV SCH (20:34)
[2017-12-29] MEDS ORDERED: NIACIN EXT TAB (500MG) 500 MG TABLET.SA PO ONE (22:08)
[2017-12-29] MEDS: NIACIN EXT TAB (500MG) 500 MG TABLET.SA PO SCH (22:18)
[2017-12-30] VITALS: BP 124/82
[2017-12-30] MEDS: ONDANSETRON HCL/PF 4 MG/2 ML VIAL IV PRN ×4 (00:08→22:00)
[2017-12-30] MEDS: HYDROMORPHONE INJ 0.5 MG/0.5 ML SYRINGE IV PRN ×7 (00:08→22:00)
[2017-12-30] MEDS: IV NS 0.9% 1,000 ML IV PRN ×2 (00:57→15:14)
[2017-12-30 04:00] VITALS: BP 125/86
[2017-12-30] MEDS: ALBUMIN 25% 25 GM in PREMIX 1 EA IV SCH (04:06)
[2017-12-30] MEDS: BLOOD SUGAR DIAGNOSTIC 1 EACH STRIP IN SCH ×4 (05:21→23:19)
[2017-12-30] MEDS: PIPERACILLIN /TAZOBACTAM 4.5 G in IV NS 0.9% 50 ML IV SCH ×4 (05:22→23:18)
[2017-12-30] MEDS: INSULIN REGULAR, HUMAN 100 UNIT/ML 3 ML VIAL SQ PRN ×5 (05:39→23:23)
[2017-12-30 06:37] LABS: EOSINOPHILS % (AUTO) 5.6 % (0.0-6.0); HEMATOCRIT 24 % (39-51); HEMOGLOBIN 8.3 g/dL (13.5-17.5); LYMPHOCYTES # (AUTO) 1.3 /CMM (0.8-4.8); LYMPHOCYTES % (AUTO) 20.4 % (20.0-44.0); MEAN CORPUSCULAR HGB CONC 35 g/dl (31.0-36.0); MEAN CORPUSCULAR VOLUME 84 fL (80-96); MONOCYTES # (AUTO) 0.4 /CMM (0.1-1.30); MONOCYTES % (AUTO) 5.6 % (2.0-12.0); NEUTROPHILS # (AUTO) 4.3 /CMM (1.8-8.9); NEUTROPHILS % (AUTO) 68.4 % (43.0-81.0); PLATELET COUNT (AUTO) 290 /CMM (150-450); RDW COEFFICIENT OF VARIATION 15.9 (11.5-15.0); RED BLOOD CELL COUNT(AUTO) 2.83 MIL/uL (4.5-6.0); WHITE BLOOD COUNT (AUTO) 6.3 K/uL (4.3-11.0)
[2017-12-30 06:58] LABS: ALBUMIN 2.7 g/dL (3.4-5.0); BILIRUBIN,TOTAL 1.1 mg/dL (0.2-1.0); CALCIUM, SERUM 7.6 mg/dL (8.5-10.1); CREATININE 1.3 mg/dL (0.6-1.3); POTASSIUM 3.4 mmol/L (3.5-5.1); TOTAL PROTEIN, SERUM 6.6 g/dL (6.4-8.2)
[2017-12-30 08:00] VITALS: BP 135/84
--- NOTE | 2017-12-30 08:00 | NUR ---
CERTIFIED OPHTHALMIC SURGICAL ASSISTANT NOTE PATIENT IN BED ,ALL NEEDS ATTENDED ,ON 2L NC SAT 93% ALERT , ORIENTED X3 , ON TELE MONITOR ST110 RT UPPER ARM PICC LINE IN PLACE, ON IVF ORDERED DR EMMANUEL AT BEDSIDE AWARE THAT PATINT STILL IN PAIN BED IN LOWEST AND LOCKED POSITION , PLAN OF CARE DISCUSSED WITH PATIENT
[2017-12-30] MEDS: ASPIRIN EC 81 MG TABLET.DR PO SCH (08:41)
[2017-12-30] MEDS: GEMFIBROZIL 600 MG TABLET PO SCH ×2 (08:41→20:54)
[2017-12-30] MEDS: EZETIMIBE 10 MG TABLET PO SCH (08:41)
[2017-12-30] MEDS ORDERED: POTASSIUM CHLORIDE 20 MEQ TAB.PRT.SR PO ONE (09:00)
--- NOTE | 2017-12-30 11:00 | NUR ---
BICYCLE FITTER NOTE TAKEN TO CT ABDOMEN WILL F\U
[2017-12-30 12:00] VITALS: BP 136/81
--- NOTE | 2017-12-30 15:00 | NUR ---
ROAD ENGINEER FREIGHT NOTE ALL NEEDS ATTENDED, NOT IN ACUTE DISTRESS, WILL CONT TO MONITOR CLOSELY
[2017-12-30 16:00] VITALS: BP 148/88
--- NOTE | 2017-12-30 18:09 | NUR ---
TELE RNNNOTE HAVING DINNER DILAUDID WAS GIVEN AT 1700 AND ZOFRAN FOR ABDOMINAL PAIN , NOT IN ACUTE DISTRESS
--- NOTE | 2017-12-30 19:30 | NUR ---
CODING SUPPORT SPECIALIST NOTES RECEIVED PT ON BED. A/OX4. ON NASAL CANNULA 2L NO SIGN OF RESPIRATORY DISTRESS. IV ACCESS ON ANGELY PICC LINE NS @75CC/HR PATENT RUNNING AND INTACT. NO SIGN OF REDNESS OR NO COMPLAINTS OF PAIN. HEAD OF BED ELEVATED. SIDE RAILS UP. CALL LIGHT IS PLACED WITHIN REACH. WILL CONTINUE TO MONITOR PT CLOSELY.
[2017-12-30 20:00] VITALS: BP 138/85
[2017-12-30] MEDS: NIACIN EXT TAB (500MG) 500 MG TABLET.SA PO SCH (20:54)
[2017-12-30] MEDS: PANTOPRAZOLE 40 MG VIAL IV SCH (20:54)
[2017-12-30] MEDS ORDERED: INSULIN GLARGINE, 100 UNIT/ML CARTRIDGE SQ SCH (22:00)
[2017-12-31] VITALS: BP 135/85
[2017-12-31] MEDS: HYDROMORPHONE INJ 0.5 MG/0.5 ML SYRINGE IV PRN ×6 (00:12→10:38)
--- NOTE | 2017-12-31 02:30 | NUR ---
CLAY PIGEON SETTER NOTES PT STATED THAT HE WANTS DILAUDID EVERY 2HOURS FOR PAIN. VERBALIZED THAT HE IS IN SO MUCH PAIN.
[2017-12-31 04:00] VITALS: BP 135/85
[2017-12-31] MEDS: ONDANSETRON HCL/PF 4 MG/2 ML VIAL IV PRN (04:20)
[2017-12-31] MEDS: BLOOD SUGAR DIAGNOSTIC 1 EACH STRIP IN SCH (05:18)
[2017-12-31] MEDS: PIPERACILLIN /TAZOBACTAM 4.5 G in IV NS 0.9% 50 ML IV SCH (05:18)
[2017-12-31] MEDS: INSULIN REGULAR, HUMAN 100 UNIT/ML 3 ML VIAL SQ PRN (05:24)
[2017-12-31 06:27] LABS: BASOPHILS # (AUTO) 0.1 /CMM (0.0-0.2); BASOPHILS % (AUTO) 0.9 % (0.0-2.0); EOSINOPHILS % (AUTO) 4.8 % (0.0-6.0); HEMATOCRIT 23 % (39-51); LYMPHOCYTES # (AUTO) 1.4 /CMM (0.8-4.8); LYMPHOCYTES % (AUTO) 19.6 % (20.0-44.0); MEAN CORPUSCULAR HGB CONC 34 g/dl (31.0-36.0); MEAN CORPUSCULAR VOLUME 84 fL (80-96); MONOCYTES # (AUTO) 0.6 /CMM (0.1-1.30); NEUTROPHILS # (AUTO) 4.7 /CMM (1.8-8.9); NEUTROPHILS % (AUTO) 66.7 % (43.0-81.0); PLATELET COUNT (AUTO) 317 /CMM (150-450); RDW COEFFICIENT OF VARIATION 15.9 (11.5-15.0)
[2017-12-31 06:45] LABS: CALCIUM, SERUM 8.2 mg/dL (8.5-10.1); CREATININE 0.9 mg/dL (0.6-1.3); POTASSIUM 3.4 mmol/L (3.5-5.1)
--- NOTE | 2017-12-31 07:25 | NUR ---
PARKING LOT ATTENDANT NOTES NO ACUTE CHANGES NOTED DURING THE SHIFT. DUE MEDS GIVEN. PROVIDED COMFORT AND SAFETY. ENDORSE TO THE AM NURSE FOR JEAN CLAUDE.
[2017-12-31 08:00] VITALS: BP 119/78
--- NOTE | 2017-12-31 08:10 | NUR ---
WIRE MACHINE OPERATOR OPENING NOTES RECEIVED PT IN BED IN FOWLERS POSITION, ALERT AND ORIENTED X3, ON 2LPM O2 VIA NC, TOLERATING WELL, ON TELE MONITOR , SR, WITH R ARM INTACT AND PATENT, WITH ANGELY PICC, INTACT AND PATENT, BED IN LOW AND LOCKED POSITION, SAFETY MEASURES OBSERVED, WILL KEEP MONITORING Addendum: 12/31/17 at 1151 by KYLE VELA RN ADDENDUM R ARM HEPLOCK, INTACT AND PATENT, CALL LIGHT WITHIN REACH
[2017-12-31] MEDS: ASPIRIN EC 81 MG TABLET.DR PO SCH (08:22)
[2017-12-31] MEDS: EZETIMIBE 10 MG TABLET PO SCH (08:23)
[2017-12-31] MEDS: GEMFIBROZIL 600 MG TABLET PO SCH (08:23)
[2017-12-31] MEDS ORDERED: NIAC500T2 PO (09:12)
[2017-12-31] MEDS ORDERED: HYDR-3972 PO (09:12)
[2017-12-31] MEDS ORDERED: GEMF600T PO (09:12)
[2017-12-31] MEDS: POTASSIUM CHLORIDE 20 MEQ TAB.PRT.SR PO ONE ×2 (09:19→09:27)
--- NOTE | 2017-12-31 11:30 | NUR ---
JOB TRACER NOTES PT DISCHARGE TO HOME IN W/C ASSITED BY OCCUPATIONAL HYGIENIST AND . IN STABLE CONDITION, IV LINES INTACT AND REMOVED, PRESSURE DRESSING APPLIED, NO SIGNS OF BLEEDING AND INFECTION ON SITE, D/C INSTRUCTIONS GIVEN, PT VERBALIZED UNDERSTANDING, ALL NEEDS MET, VS FOLLOWS: T: 98.2, P:90; R:20; BP: 123/72
[2017-12-31] MEDS ORDERED: PIPERACILLIN /TAZOBACTAM 4.5 G in IV NS 0.9% 100 ML IV SCH (12:00)
== END 2017-12-31 11:45 | disposition home or self-care (01) | DRG 282 ==
LOC: ER 13:21 → ICU 20:35 → TELE1 12-29 14:22
PROVIDERS: ADMIT Internal Medicine; ATTEND Internal Medicine
PROC: 02HV33Z Insertion of Infusion Device into Superior Vena Cava, Percutaneous Approach (ICD-10-PCS; principal; 2017-12-27)
PROC: B548ZZA Ultrasonography of Superior Vena Cava, Guidance (ICD-10-PCS; principal; 2017-12-27)
DX: K85.91 Acute pancreatitis with uninfected necrosis, unspecified (principal); N17.0 Acute kidney failure with tubular necrosis; E46 Unspecified protein-calorie malnutrition; E11.9 Type 2 diabetes mellitus without complications; I10 Essential (primary) hypertension; D64.9 Anemia, unspecified; E87.1 Hypo-osmolality and hyponatremia; E83.51 Hypocalcemia; E87.6 Hypokalemia; Z79.4 Long term (current) use of insulin; Z79.84 Long term (current) use of oral hypoglycemic drugs; Z79.82 Long term (current) use of aspirin; Z79.899 Other long term (current) drug therapy; E78.5 Hyperlipidemia, unspecified; Z83.3 Family history of diabetes mellitus; Z82.49 Family history of ischemic heart disease and other diseases of the circulatory system; E78.1 Pure hyperglyceridemia; K86.1 Other chronic pancreatitis; E66.01 Morbid (severe) obesity due to excess calories; Z68.42 Body mass index [BMI] 45.0-49.9, adult
CPT/HCPCS: 36415; 36569; 76770-TC; 80048-TC; 80053-TC; 80061-TC; 80076-TC; 82570-TC; 82962-TC; 83690-TC; 84300-TC; 84478-TC; 84484-TC; 85025-TC; 87081-TC; A4216; A4606; C1751; C9113; J0610; J1170; J1815; J2310; J2405; J2543; J2765; J3010; J3480; J3490; J7030; J7040; J7050; J7060; P9047; Q9967; Z7610

== ENCOUNTER 2020-10-29 11:34 | Inpatient (IN) | payer MEDICARE, OTHER ==
[~2020-10-29] VITALS: Ht 170.2 cm; Wt 105.2 kg
[~2020-10-29 11:34] MED LIST changes: +EZET10TA6 PO; -FENO145T35 PO; +GEMF600T PO; +GLIM4TAB37 PO; +HYDR-3972 PO; -HYDR-552 PO; +INSU100I14 SQ; +LOSA50TA39 PO; -METF-440 PO; +METF-442 PO; -METO-358 PO; +NIAC500T2 PO; +OMEP20TA5 PO; -PANT20TA2 PO
--- NOTE | 2020-10-29 11:50 | NUR ---
THE PATIENT BIBS FOR C/O EPIGASTRIC PAIN SINCE AM TODAY VOMITED X1. HX OF PANCREATITIS. THE PATIENT RATES PAIN 10/10. IN ROOM AIR AND DENIES SOB. RESPIRATION REGULAR AND UNLABORED. THE PATIENT IS ATTACHED ON A MONITOR. WILL CONTINUE TO MONITOR.
[2020-10-29] MEDS ORDERED: KETOROLAC TROMETHAMINE 15 MG/ML VIAL ONE (11:58)
[2020-10-29] MEDS ORDERED: KETOROLAC TROMETHAMINE INJ 30 MG/ML VIAL IV ONE (12:00)
[2020-10-29] MEDS ORDERED: IV NS 0.9% 1,000 ML BAG IV ONE (12:00)
[2020-10-29 12:05] LABS: BASOPHILS # (AUTO) 0.1 /CMM (0.0-0.2); EOSINOPHILS % (AUTO) 2.5 % (0.0-6.0); HEMATOCRIT 39 % (39-51); HEMOGLOBIN 14.2 g/dL (13.5-17.5); LYMPHOCYTES # (AUTO) 1.7 /CMM (0.8-4.8); MEAN CORPUSCULAR HGB CONC 36 g/dl (31.0-36.0); MEAN CORPUSCULAR VOLUME 85 fL (80-96); MONOCYTES # (AUTO) 0.4 /CMM (0.1-1.30); MONOCYTES % (AUTO) 5.2 % (2.0-12.0); NEUTROPHILS # (AUTO) 5.2 /CMM (1.8-8.9); NEUTROPHILS % (AUTO) 68.3 % (43.0-81.0); PLATELET COUNT (AUTO) 372 /CMM (150-450); RED BLOOD CELL COUNT(AUTO) 4.63 MIL/uL (4.5-6.0); WHITE BLOOD COUNT (AUTO) 7.6 K/uL (4.3-11.0)
[2020-10-29] MEDS ORDERED: HYDROMORPHONE 1 MG/1 ML DISP.SYRIN IV ONE ×2 (12:30→15:00)
[2020-10-29] MEDS ORDERED: HYDROMORPHONE 1 MG/1 ML DISP.SYRIN ONE ×2 (12:32→14:39)
[2020-10-29 12:33] LABS: CALCIUM, SERUM 7.6 mg/dL (8.5-10.1); CARBON DIOXIDE 24 mmol/L (21-32); CHLORIDE 92 mmol/L (98-107); POTASSIUM 4.3 mmol/L (3.5-5.1); SODIUM SERUM 128 mmol/L (136-145); UREA NITROGEN, BLOOD 12 mg/dL (7-18)
[2020-10-29 12:37] LABS: ALBUMIN 3.3 g/dL (3.4-5.0); ALKALINE PHOSPHATASE 83 U/L (46-116); B-TYPE NATRIURETIC PEPTIDE 15 PG/ML (0-125); BILIRUBIN,TOTAL 0.7 mg/dL (0.2-1.0); GLUCOSE 440 mg/dL (74-106)
--- NOTE | 2020-10-29 13:36 | NUR ---
[facility] CALLED FACTORY ENGINEER PAGED.
[2020-10-29 13:41] LABS: CREATININE 0.9 mg/dL (0.6-1.3); TOTAL PROTEIN, SERUM 7.9 g/dL (6.4-8.2)
[2020-10-29] MEDS ORDERED: GLIM4TAB37 PO (13:48)
[2020-10-29] MEDS ORDERED: OMEP20CA15 PO (13:48)
[2020-10-29] MEDS ORDERED: EMPA25TA PO (13:48)
[2020-10-29] MEDS ORDERED: NAPR-1009 PO (13:48)
[2020-10-29] MEDS ORDERED: GEMF600T90 PO (13:48)
[2020-10-29] MEDS ORDERED: METO-295 PO (13:48)
[2020-10-29] MEDS ORDERED: METO25TA3 PO (13:48)
[2020-10-29] MEDS ORDERED: AMLO-212 PO (13:48)
[2020-10-29] MEDS ORDERED: INSU500I SQ (13:48)
[2020-10-29] MEDS ORDERED: METF-440 PO (13:48)
[2020-10-29] MEDS ORDERED: EZET10TA6 PO (13:48)
[2020-10-29] MEDS ORDERED: GABA-532 PO (13:48)
[2020-10-29] MEDS ORDERED: PIOG15TA8 PO (13:48)
[2020-10-29] MEDS ORDERED: ASPI-1420 PO (13:48)
[2020-10-29] MEDS ORDERED: OMEG1CAP PO (13:48)
[2020-10-29] MEDS ORDERED: INSU100I26 SQ (13:48)
[2020-10-29] MEDS ORDERED: ERGO500014 PO (13:48)
[2020-10-29] MEDS ORDERED: HYDR-4303 PO (13:48)
[2020-10-29] MEDS ORDERED: DEXL60CA3 PO (13:48)
[2020-10-29] MEDS ORDERED: MECL-159 PO (13:48)
--- NOTE | 2020-10-29 13:50 | NUR ---
covid swab done and taken it to the lab.
[2020-10-29] MEDS ORDERED: IOHEXOL-300 100 ML VIAL IV ONE (13:51)
[2020-10-29] MEDS ORDERED: IV NS 0.9% 250 ML IV ONE (13:52)
[2020-10-29] MEDS ORDERED: INSULIN REGULAR, HUMAN 100 UNIT/ML 10 ML VIAL SQ ONE (14:30)
--- NOTE | 2020-10-29 14:34 | NUR ---
patient complians of epigastric pain 03/11. gilaudid 0.5 mg iv push ordered by dr Ayala. The order read back, verified. Noted and carried out.
[2020-10-29 15:10] LABS: ALANINE AMINOTRANSFERASE 31 U/L (12-78); ASPARTATE AMINOTRANSFERASE 64 U/L (15-37)
--- NOTE | 2020-10-29 15:15 | NUR ---
LAB CALLED PT COVID RESULT NEGATIVE (-)
[2020-10-29] MEDS ORDERED: ACETAMINOPHEN 325 MG TABLET PO PRN (15:30)
[2020-10-29] MEDS ORDERED: Z GUARD REMEDY 2 OZ OINT TP PRN (15:30)
[2020-10-29] MEDS ORDERED: MAG HYDROX/AL HYDROX/SIMETH 30 ML UDC PO PRN (15:30)
[2020-10-29] MEDS ORDERED: MAGNESIUM HYDROXIDE 30 ML UDC PO PRN (15:30)
[2020-10-29] MEDS ORDERED: DEXTROSE 50%-WATER 50 ML DISP.SYRIN IV PRN (15:30)
[2020-10-29] MEDS ORDERED: ONDANSETRON HCL/PF 4 MG/2 ML VIAL IVP PRN (15:30)
[2020-10-29] MEDS ORDERED: MORPHINE SULFATE INJ 2 MG/ML DISP.SYRIN IV PRN (15:30)
--- NOTE | 2020-10-29 15:35 | NUR ---
BED ASSIGNED 320
--- NOTE | 2020-10-29 15:57 | NUR ---
THE PATIENT TRANSFERED TO [facility]
[2020-10-29 16:00] VITALS: BP 154/97
--- NOTE | 2020-10-29 16:00 | NUR ---
MS RN ADMITTING NOTES PT TRANSPORTED BY WHEEL CHAIR TO UNIT AT THIS TIME. RECEIVED REPORT FROM BLANCA MANRIQUEZ AT EMERGENCY ROOM. PT A/O X4, PT ABLE TO VERBALIZE NEEDS, NO SOB NOTED, BREATHING EVEN AND UNLABORED. PT DENIES ANY PAIN AT THIS TIME. NO S/O ANY APPARENT DISTRESS NOTED. LUNGS ARE CLEAR TO AUSCULTATION, ACTIVE BOWEL SOUNDS AUSCULTATED THROUGH OUT. SKIN IS WARM TO TOUCH, UPPER AND LOWER EXTREMITIES STRENGTH INTACT. PULSES PRESENT BILATERALLY, GOOD CIRCULATION, CAPILLARY REFILL <3 SECONDS. SKIN INTACT. PT STABLE ON RA. IV ACCESS NOTED IN LAC G#18, INTACT PATENT AND FLUSHING WELL. SAFETY PRECAUTION IN PLACE AND MAINTAINED AT ALL TIMES. BED IN LOWEST LOCKED POSITION, HOB ELEVATED, SIDE RAILS UPX2, CALL LIGHT AND TABLE WITHIN REACH. WILL CONTINUE TO MONITOR
[2020-10-29] MEDS: IV NS 0.9% 1,000 ML IV PRN (16:58)
--- NOTE | 2020-10-29 17:45 | NUR ---
RECEIVED ORDERS FROM RICHARD ARNOLD FOR DILAUDID 0.5MG IV X 1, ORDERS READ BACK AND ENTERED. WILL CONTINUE TO MONITOR
[2020-10-29] MEDS ORDERED: HYDROMORPHONE 1 MG/1 ML DISP.SYRIN IV PRN (18:00)
[2020-10-29] MEDS: BLOOD SUGAR DIAGNOSTIC 1 EACH STRIP IN SCH ×2 (18:20→23:32)
[2020-10-29] MEDS: INSULIN REGULAR, HUMAN 100 UNIT/ML 3 ML VIAL SQ PRN ×2 (18:37→23:38)
--- NOTE | 2020-10-29 18:44 | NUR ---
PT C/O NON RADIATING CHEST TIGHTNESS, RATED 8/10 ON PAIN SCALE. PT WAS GRASPING SITE. VS 154/97 HR 105 RR 20 TEMP 98.7 02SAT 95%. PER PT REQUEST, DILAUDID 0.5 MG IV ONE TIME. WILL CONTINUE TO MONITOR.
--- NOTE | 2020-10-29 19:00 | NUR ---
IN BED ALERT AND ORIENTATED X4 GOOD EYE CONTACT. SPEECH CLEAR WATCHING TV AND ON HIS CELL PHONE. NO C/O PAIN AT THIS TIME. ABD ROUND TENDER TO THE TOUCH BS AUDIBAL. HE IS AWARE WE NEED A UA SPECIMEN
--- NOTE | 2020-10-29 19:13 | NUR ---
RN CLOSING NOTES PT AWAKE IN BED AT THIS TIME. PT REMAINED STABLE THROUGHOUT SHIFT. ALL CARE, NEEDS, MEDICATIONS AND TREATMENT ADMINISTERED ANTICIPATED PER ORDER. SAFETY PRECAUTIONS MAINTAINED AT ALL TIMES. BED IN LOWEST LOCKED POSITION, HOB ELEVATED, SIDE RAILS UPX2, CALL LIGHT AND TABLE WITHIN REACH. WILL ENDORSE TO BEHAVIORAL SCIENCE CHAIR NURSE FOR JEAN CLAUDE
[2020-10-29 20:00] VITALS: BP 126/77
[2020-10-29 20:24] VITALS: BP 126/77
[2020-10-29] MEDS: HYDROMORPHONE 1 MG/1 ML DISP.SYRIN IV PRN (23:27)
[2020-10-30] MEDS: IV NS 0.9% 1,000 ML IV PRN (02:35)
[2020-10-30] MEDS: HYDROMORPHONE 1 MG/1 ML DISP.SYRIN IV PRN ×5 (04:13→21:32)
--- NOTE | 2020-10-30 04:36 | NUR ---
ENDING NOTES: ALERT AND ORIENTATED x4 MEDICATED x2 WITH DILAUDID 0.5 MY IV FOR EPIGASTRICE PAIN AND EFFECTIVE VOIDED BUT NOT SAVED FOR SPECIMEN WILL GET NEXT [facility] MOVES ABOUT IN HIS BED INDEPENDENTLY
[2020-10-30] MEDS: BLOOD SUGAR DIAGNOSTIC 1 EACH STRIP IN SCH ×3 (06:18→17:40)
[2020-10-30 06:20] LABS: BASOPHILS # (AUTO) 0.1 /CMM (0.0-0.2); EOSINOPHILS % (AUTO) 3.2 % (0.0-6.0); HEMATOCRIT 35 % (39-51); LYMPHOCYTES # (AUTO) 2.8 /CMM (0.8-4.8); LYMPHOCYTES % (AUTO) 39.6 % (20.0-44.0); MEAN CORPUSCULAR HGB CONC 34 g/dl (31.0-36.0); MEAN CORPUSCULAR VOLUME 85 fL (80-96); MONOCYTES # (AUTO) 0.4 /CMM (0.1-1.30); MONOCYTES % (AUTO) 5.6 % (2.0-12.0); NEUTROPHILS # (AUTO) 3.6 /CMM (1.8-8.9); NEUTROPHILS % (AUTO) 50.6 % (43.0-81.0); PLATELET COUNT (AUTO) 301 /CMM (150-450); RED BLOOD CELL COUNT(AUTO) 4.09 MIL/uL (4.5-6.0); WHITE BLOOD COUNT (AUTO) 7.2 K/uL (4.3-11.0)
[2020-10-30] MEDS: INSULIN REGULAR, HUMAN 100 UNIT/ML 3 ML VIAL SQ PRN ×2 (06:23→12:10)
--- NOTE | 2020-10-30 06:37 | NUR ---
patient blood sugar this 06:30 am was 244 patient stated he ate some cholcolate last night
[2020-10-30 06:53] LABS: CALCIUM, SERUM 7.8 mg/dL (8.5-10.1); CREATININE 0.6 mg/dL (0.6-1.3); POTASSIUM 3.6 mmol/L (3.5-5.1)
[2020-10-30 06:57] LABS: MAGNESIUM 1.8 mg/dL (1.8-2.4); PHOSPHORUS 3.2 mg/dL (2.5-4.9)
[2020-10-30 07:19] LABS: THYROID STIMULATING HORMONE 1.1 uIU/mL (0.358-3.74)
--- NOTE | 2020-10-30 07:30 | NUR ---
PT RECEIVED RESTING COMFORTABLY IN BED WITH EYES CLOSED. NO S/S OR C/O PAIN OR DISTRESS NOTED. SIDE RAILS UP X2, CALL LIGHT LEFT WITHIN REACH. WILL CONTINUE PLAN OF CARE.
[2020-10-30 08:00] VITALS: BP 142/99
[2020-10-30] MEDS: PANTOPRAZOLE 40 MG VIAL IV SCH (08:33)
[2020-10-30] MEDS ORDERED: METOCLOPRAMIDE HCL 10 MG TABLET PO PRN (12:00)
[2020-10-30] MEDS ORDERED: HYDROCODONE/APAP 5/325MG TABLET PO PRN (12:00)
[2020-10-30] MEDS ORDERED: DEXTROSE 50%-WATER 50 ML DISP.SYRIN IV PRN (13:00)
[2020-10-30] MEDS ORDERED: INSULIN REGULAR HUMAN SQ SCH (13:00)
[2020-10-30] MEDS ORDERED: Medication Not On Formulary EA (Omega-3 Fatty Acids/Fish Oil (Fish Oil 1,000 Mg Capsule) PO SCH (13:00)
[2020-10-30] MEDS ORDERED: [UNRECOGNIZED DRUG - OTHER] SQ SCH (13:00)
[2020-10-30 15:34] LABS: BILIRUBIN,URINE NEGATIVE (NEGATIVE); COLOR,URINE YELLOW (YELLOW); LEUKOCYTE ESTERASE ,URINE SMALL (NEGATIVE); NITRITE, URINE NEGATIVE (NEGATIVE); PH,URINE 5.5 (5.0-8.0); PROTEIN,URINE NEGATIVE (NEGATIVE); UGLUCOSE 500 MG/DL mg/dL (NEGATIVE); UROBILINOGEN,URINE 0.2 EU/dL (0.2)
[2020-10-30 15:39] LABS: BACTERIA,URINE 2+ /HPF (None Seen)
[2020-10-30 16:00] VITALS: BP 145/100
[2020-10-30] MEDS: METFORMIN 500 MG TABLET PO SCH (16:21)
[2020-10-30] MEDS: GEMFIBROZIL 600 MG TABLET PO SCH (16:21)
[2020-10-30] MEDS: GLIMEPIRIDE 4 MG TABLET PO SCH (16:21)
[2020-10-30] MEDS: INSULIN REGULAR, HUMAN 100 UNIT/ML 3 ML VIAL SQ SCH (17:00)
--- NOTE | 2020-10-30 18:15 | NUR ---
CHANGE OF SHIFT REPORT PT RESTING COMFORTABLY IN BED. NO S.S OR C/O PAIN OR DISTRESS NOTED. SIDE RAILS UP X2, CALL LIGHT LEFT WITHIN REACH. PT KEPT CLEAN, DRY, AND COMFORTABLE. NO SIGNIFICANT CHANGES SINCE PREVIOUS SHIFT. WILL GIVE REPORT TO BRANDI RIOS.
[2020-10-30 20:00] VITALS: BP 151/101
--- NOTE | 2020-10-30 20:00 | NUR ---
ms brennen initial note received report from am nurse and seen pt in bed watching TV with IVF NS at 125ml/hr infusing on his left AC patent and intact. denies any pain at this time. Patient wants to disconnect his IV now because he wants to used to do his personal care. kept him warm and comfortable at all times. will continue monitoring.
--- NOTE | 2020-10-30 21:40 | NUR ---
ms brennen notes routine meds given then Lantus 60 units administered with a blood sugar 215. snacks served. Patient also complaint of abdominal pain , Dilaudid 0.5mg IVP given by nurse Jabari/RN ryan IVP as ordered. will continue later.
[2020-10-30] MEDS ORDERED: ATORVASTATIN 10 MG TABLET PO SCH (22:00)
[2020-10-30] MEDS ORDERED: INSULIN GLARGINE, 100 UNIT/ML CARTRIDGE SQ SCH (22:00)
--- NOTE | 2020-10-31 | NUR ---
ops manager notes pt sleeping comfortably in bed without any distress noted, IVF infusing at this time on his right AC patent and intact. kept him warm and comfortable at all time. will continue monitoring. place call light at reach.
[2020-10-31] MEDS: BLOOD SUGAR DIAGNOSTIC 1 EACH STRIP IN SCH ×4 (00:38→17:06)
[2020-10-31] MEDS: INSULIN REGULAR, HUMAN 100 UNIT/ML 3 ML VIAL SQ PRN ×3 (00:41→17:04)
[2020-10-31] MEDS: HYDROMORPHONE 1 MG/1 ML DISP.SYRIN IV PRN ×3 (02:37→12:31)
[2020-10-31] MEDS: IV NS 0.9% 1,000 ML IV PRN (04:35)
--- NOTE | 2020-10-31 06:36 | NUR ---
ms student services rep notes blood sugar checked done 122. no insulin due at this time. patient asked for his pain medication offered norco tablet but instead he wants the Dilaudid and administered by nurse Harmon/rn ryan IVP as ordered. Denies any N/V. will continue monitoring.
[2020-10-31 06:44] LABS: BASOPHILS # (AUTO) 0.1 /CMM (0.0-0.2); BASOPHILS % (AUTO) 1.1 % (0.0-2.0); EOSINOPHILS % (AUTO) 5.5 % (0.0-6.0); HEMATOCRIT 34 % (39-51); HEMOGLOBIN 11.9 g/dL (13.5-17.5); LYMPHOCYTES # (AUTO) 3.1 /CMM (0.8-4.8); LYMPHOCYTES % (AUTO) 53.9 % (20.0-44.0); MEAN CORPUSCULAR HGB CONC 35 g/dl (31.0-36.0); MEAN CORPUSCULAR VOLUME 85 fL (80-96); MONOCYTES # (AUTO) 0.3 /CMM (0.1-1.30); MONOCYTES % (AUTO) 5.7 % (2.0-12.0); NEUTROPHILS # (AUTO) 1.9 /CMM (1.8-8.9); NEUTROPHILS % (AUTO) 33.8 % (43.0-81.0); PLATELET COUNT (AUTO) 302 /CMM (150-450); RED BLOOD CELL COUNT(AUTO) 4.03 MIL/uL (4.5-6.0); WHITE BLOOD COUNT (AUTO) 5.7 K/uL (4.3-11.0)
--- NOTE | 2020-10-31 07:01 | NUR ---
MS OUTSIDE SALES ACCOUNT EXECUTIVE CLOSING NOTES PT SEEN SLEEPING AT THIS TIME AFTER PAIN MEDICATION GIVEN. NO SIGNS OF ANY DISTRESS NOTED. IVF STILL INFUSING ON HIS RIGHT AC NO REDNESS NOTED. STABLE APPLE THE NIGHT AND ALL NEEDS MET. KEPT HIM WARM AND COMFORTABLE AT ALL TIMES. WILL ENDORSE TO AM NURSE FOR CONTINUITY OF CARE. PLACE CALL LIGHT AT REACH.
[2020-10-31 07:08] LABS: LIPASE 159 U/L (73-393)
[2020-10-31 07:14] LABS: CALCIUM, SERUM 7.9 mg/dL (8.5-10.1); CREATININE 0.7 mg/dL (0.6-1.3); MAGNESIUM 1.7 mg/dL (1.8-2.4); PHOSPHORUS 3.5 mg/dL (2.5-4.9); POTASSIUM 3.3 mmol/L (3.5-5.1)
[2020-10-31] MEDS ORDERED: OMEPRAZOLE 20 MG CAPSULE.DR PO SCH (07:30)
--- NOTE | 2020-10-31 07:50 | NUR ---
MS RN OPENING NOTE PATIENT IS IN BED RESTING, PATIENT IS IN NO ACUTE DISTRESS. NO SOB NOTED. PATIENT IS ON ROOM AIR. PATIENT IS ABLE TO AMBULATE TO THE BATHROOM. SAFETY PRECAUTIONS ARE ON. BED IN THE LOWEST POSITION WITH SIDE RAILS UP, CALL LIGHT WITHIN REACH, WILL CONTINUE TO MONITOR CLOSELY THROUGH OUT THE SHIFT.
[2020-10-31 08:00] VITALS: BP 120/75
[2020-10-31] MEDS: PANTOPRAZOLE 40 MG VIAL IV SCH (08:32)
[2020-10-31 08:33] VITALS: BP 120/75
[2020-10-31] MEDS: GEMFIBROZIL 600 MG TABLET PO SCH ×2 (08:33→17:00)
[2020-10-31] MEDS: GLIMEPIRIDE 4 MG TABLET PO SCH ×2 (08:37→17:00)
[2020-10-31] MEDS: METFORMIN 500 MG TABLET PO SCH ×2 (08:37→17:00)
--- NOTE | 2020-10-31 08:38 | NUR ---
MS RN NOTE PATIENTS BLOOD SUGAR IS 99, WITHHOLDING MEDICATIONS ACTOS, AMARYL AND METFORMIN
[2020-10-31] MEDS ORDERED: METOPROLOL SUCCINATE 25 MG TAB.SR.24H PO SCH (09:00)
[2020-10-31] MEDS: INSULIN REGULAR, HUMAN 100 UNIT/ML 3 ML VIAL SQ SCH ×3 (09:00→17:00)
[2020-10-31] MEDS ORDERED: ASPIRIN EC 81 MG TABLET.DR PO SCH (09:00)
[2020-10-31] MEDS ORDERED: MECLIZINE HCL 25 MG TABLET PO SCH (09:00)
[2020-10-31] MEDS ORDERED: NAPROXEN 500 MG TABLET PO SCH (09:00)
[2020-10-31] MEDS ORDERED: PIOGLITAZONE HCL 15 MG TABLET PO SCH (09:00)
[2020-10-31] MEDS ORDERED: EZETIMIBE 10 MG TABLET PO SCH (09:00)
[2020-10-31] MEDS ORDERED: AMLODIPINE BESYLATE 5 MG TABLET PO SCH (09:00)
[2020-10-31 09:12] LABS: TRIGLYCERIDES 2340 mg/dL (30-150)
[2020-10-31] MEDS ORDERED: POTASSIUM CHLORIDE 20 MEQ POWDER PACKET PO SCH (10:00)
--- NOTE | 2020-10-31 10:22 | NUR ---
MS RN NOTE REGULAR INSULIN WAS NOT ADMINISTERED PATIENTS BLOOD SUGAR IS 99
[2020-10-31] MEDS: Magnesium 1GM/D5W 100ML PREMIX 100 ML IV SCH ×2 (10:38→11:39)
[2020-10-31] MEDS ORDERED: ATOR10TA PO (12:05)
[2020-10-31] MEDS ORDERED: CEPH750C9 PO (13:11)
--- NOTE | 2020-10-31 13:17 | NUR ---
MS RN NOTE PATIENTS BLOOD SUGAR IS 118, DID NOT ADMINISTER REGULAR INSULIN
--- NOTE | 2020-10-31 18:50 | NUR ---
MS LOCATOR NOTE PATIENT IS IN NO ACUTE DISTRESS. PATIENT IS MEDICALLY STABLE TO BE DISCHARGED. PATIENTS NEEDS WERE MET. DISCHARGE EDUCATION PROVIDED. PATIENT VERBALIZED UNDERSTANDING. PATIENTS IV LINE AND ID BAND IS REMOVED. PATIENT IS BEING PICKED UP BY HIS IN A PRIVATE CAR.
[2020-11-04] MEDS ORDERED: ERGOCALCIFEROL (VITAMIN D 2) 50,000 UNIT CAPSULE PO SCH (09:00)
== END 2020-10-31 19:00 | disposition home or self-care (01) | DRG 439 ==
LOC: ER 11:34 → MERGE 15:44 → MED 15:44
PROVIDERS: ADMIT Registered Nurse; ATTEND Registered Nurse
DX: K85.90 Acute pancreatitis without necrosis or infection, unspecified (principal); E87.1 Hypo-osmolality and hyponatremia; K86.1 Other chronic pancreatitis; E11.65 Type 2 diabetes mellitus with hyperglycemia; I12.9 Hypertensive chronic kidney disease with stage 1 through stage 4 chronic kidney disease, or unspecified chronic kidney disease; K21.9 Gastro-esophageal reflux disease without esophagitis; N18.9 Chronic kidney disease, unspecified; N30.90 Cystitis, unspecified without hematuria; K82.8 Other specified diseases of gallbladder; Z88.5 Allergy status to narcotic agent; Z79.4 Long term (current) use of insulin; Z79.899 Other long term (current) drug therapy; E11.22 Type 2 diabetes mellitus with diabetic chronic kidney disease; Z79.82 Long term (current) use of aspirin; E78.5 Hyperlipidemia, unspecified; E66.01 Morbid (severe) obesity due to excess calories; Z68.36 Body mass index [BMI] 36.0-36.9, adult; K59.00 Constipation, unspecified; E78.1 Pure hyperglyceridemia; E86.1 Hypovolemia
CPT/HCPCS: 36415; 71045-TC; 80048-TC; 80061-TC; 80076-TC; 81001; 82962-TC; 83690-TC; 83735-TC; 83880; 84100-TC; 84443-TC; 84478-TC; 84484-TC; 85025-TC; 87081-TC; 87086-TC; C9113; C9803; G0378; J1170; J1815; J1885; J3475; J7030; J7050; J8597; Q9967